=== PATIENT | female | born 1980 | race Caucasian/White ===

== ENCOUNTER 2020-10-18 09:30 | Emergency (ER) | payer OTHER, SELFPAY ==
--- NOTE | ~2020-10-18 | CT_ITS ---
EXAMINATION: CT ABDOMEN AND PELVIS WITHOUT CONTRAST CLINICAL INFORMATION: Abdominal pain. COMPARISON: None TECHNIQUE: Multidetector volumetric imaging was performed from the superior aspect of the liver through the pubic symphysis. Sagittal and coronal reformatted images were obtained on the technologist's workstation. No oral or intravenous contrast. This CT examination was performed using dose optimization techniques as appropriate, variously including the following: *Automated exposure control *Adjustment of mA and/or kV according to patient size (this includes techniques or standardized protocols for targeted exams where dose is matched to indication/reason for exam; i.e. extremities or head) *Use of iterative reconstruction technique DLP: 508 mGy-cm FINDINGS: LUNG BASES: The visualized lung bases are unremarkable. LIVER, GALLBLADDER, AND BILIARY TREE: The liver is normal in size, shape, and attenuation. No focal hepatic lesion or biliary ductal dilatation is present. Prior cholecystectomy. Common duct unremarkable. PANCREAS: Unremarkable. SPLEEN: Unremarkable. ADRENAL GLANDS: Unremarkable. KIDNEYS AND URETERS: The kidneys are normal in size, shape, and attenuation. No hydronephrosis, hydroureter, or calculi seen. No perinephric stranding. BLADDER: Unremarkable. GASTROINTESTINAL TRACT: There is no bowel obstruction or inflammatory changes in the bowel or mesentery. There is no pneumatosis or free air. No ascites or fluid collection. Some linear high attenuation medial to the cecum may represent barium in a small unremarkable appendix or perhaps benign mesenteric calcification. There are no inflammatory changes around the cecum or terminal ileum. ABDOMINAL WALL: No significant hernia is appreciated. LYMPH NODES: No lymphadenopathy. VASCULAR: Unremarkable. PELVIC VISCERA: No adnexal mass or pelvic ascites. OSSEOUS STRUCTURES: Unremarkable. CT/CT abdomen pelvis wo con IMPRESSION: 1. No inflammatory changes in abdomen or pelvis. No pneumatosis or free air. 2. Prior cholecystectomy. No ductal dilatation. 3. No hydronephrosis or perinephric stranding.
[2020-10-18 09:43] VITALS: BP 136/94; PULSE 108; RESP 20; TEMP 36.3; O2SAT 99; BMI 23.3
--- NOTE | 2020-10-18 11:01 | ED_ITS ---
HPI - Abdominal Pain General Chief Complaint: Dyspnea Stated Complaint: abd pain Time Seen by Provider: 10/18/20 10:46 History of Present Illness HPI narrative: 40-year-old female with history of GERD disease (never had upper endoscopy) presented today with 4 days of upper abdominal/epigastric pain, pain described as intermittent severe burning sensation (10/10), pain is localized to the epigastric area with no radiation, pain is associated with nausea but no vomiting or blood in the stool, pain is worsened by any p.o. intake, nothing relieves the pain. Patient had similar pain in the past and was diagnosed with peptic ulcer disease. Related Data Previous Rx's Medication Instructions Recorded omeprazole magnesium [Prilosec OTC] 20 mg PO BID #30 tab 10/18/20 Allergies Allergy/AdvReac Type Severity Reaction Status Date / Time amoxicillin [AMOXICILLIN] Allergy Unknown SHORTNESS Verified 10/18/20 09:46 OF BREATH levofloxacin [From [facility]] Allergy Unknown UNKNOWN Verified 10/18/20 09:46 Review of Systems Review of Systems All other systems are reviewed and are negative Constitutional: Reports as per HPI and Reports no additional constitutional complaints Eyes: Reports as per HPI and Reports no additional eye complaints Reports system reviewed and no additional complaints, except as documented Cardiovascular: Reports as per HPI and Reports no additional cardiovascular complaints Respiratory: Reports as per HPI and Reports no additional respiratory complaints Gastrointestinal: Reports as per HPI and Reports no additional gastrointestinal complaints Genitourinary: Reports no additional female genitourinary complaints Musculoskeletal: Reports no additional musculoskeletal complaints Skin/Breast: Reports system reviewed and no additional complaints, except as docu Psychiatric: Reports no additional psychiatric complaints Endocrine: Reports no additional endocrine complaints Hematologic/Lymphatic: Reports no additional hematologic/lymphatic complaints Allergic/Immunologic: Reports no additional allergic/immunologic complaints Reports system reviewed and no additional complaints, except as documented and Reports Abnormal speech present Physical Exam Vital Signs: Vital Signs: Last Vital Signs Temp 98.1 F 10/18/20 13:52 Pulse 86 10/18/20 13:52 Resp 20 10/18/20 13:52 BP 112/67 10/18/20 13:52 Pulse Ox 95 10/18/20 13:52 Body Mass Index 23.3 Vital signs have been reviewed as appeared to be correct. Blood pressure in the high range, Heart rate tachycardia. Respiration rate normal. Temperature normal. Oxygen saturation normal. Appearance: Alert. Oriented X3. No acute distress. Head: Normal external exam. Normocephalic. Atraumatic. No Castaneda signs noted. No raccoon eyes noted Eyes: PERRLA. EOMI. Conjunctiva and sclera normal. Eyelids normal. ENT: TM's Normal. Pharynx normal. Uvula midline. Moist mucous membranes. No trismus noted. No drooling noted. No muffled voice noted. Neck: Normal inspection. Neck supple. FROM. No adenopathy. Thyroid Normal. No meningeal signs. No neck mass noted. CVS: Normal heart rate and rhythm. Heart sound normal. No murmurs noted. Pulses normal throughout. Respiratory: No respiratory distress. Painless inspiration. Breath sounds normal. No wheezes/rales/rhonchi noted. Chest nontender. No accessory muscle usage noted or decreased air movement noted. Abdomen: Soft, epigastric tenderness, no rebound tenderness, no guarding. Bowel sounds normal in all 4 quadrants. No distention noted. No organomegaly noted. No visible injury noted. Back: No CVA tenderness. Full range of motion noted. Skin: Skin warm and dry. Normal skin color. Normal skin turgor. No rashes/lesions/lacerations noted. Extremities: No lower extremity edema. Extremities exhibit normal range of motion. Extremities nontender. Neuro: Oriented X 3. No motor deficit. No sensory deficit. Reflexes normal. MDM - Abdominal Pain MDM Narrative Medical decision making narrative: Assessment and plan. 40-year-old female came in with upper abdominal pain known history of gastritis/GERD. Patient had unremarkable labs/UA/CT of the abdomen pelvis. Will discharge the patient to follow-up with PCP/GI and start on Prilosec. Lab Data Attestation: I reviewed the patient's lab results. Result diagrams: 10/18/20 11:17 10/18/20 11:17 Labs: Lab Results 10/18/20 10/18/20 10/18/20 Range/Units 11:17 11:17 11:17 WBC 7.2 (4.8-10.8) X10*3/uL RBC 4.85 (4.20-5.50) X10*6/uL Hgb 13.9 (12.0-16.0) g/dl Hct 42.3 (37-47) % MCV 87.2 (80-98) fL MCH 28.7 (27.0-33.0) pg MCHC 32.9 (31.0-35.0) g/dl RDW 14.2 (11.0-16.0) % Plt Count 386 (160-400) X10*3/uL MPV 9.8 (9.4-12.3) fL Immature Gran % (Auto) 0.3 (0.0-0.4) % Neut % (Auto) 63.1 (45-73) % Lymph % (Auto) 27.1 (20-40) % Taylor % (Auto) 7.3 (2-11) % Eos % (Auto) 1.5 (0-4) % Baso % (Auto) 0.7 (0-2) % Lymph # (Auto) 1.9 (1.2-4.9) X10*3/uL Taylor # (Auto) 0.5 (0.1-1.2) X10*3/uL Eos # (Auto) 0.1 (0.0-0.4) X10*3/uL Baso # (Auto) 0.1 (0.0-0.2) X10*3/uL Abs Immat Gran (auto) 0.02 (0.00-0.03) X10*3/uL Absolute Neuts (auto) 4.5 (2.0-8.3) X10*3/uL Absolute Nucleated RBC 0.000 (0.0-0.012) X10*3/uL Nucleated RBC % (auto) 0.0 (0.0-0.2) /100WBC Sodium 138 (135-145) mmol/L Potassium 4.5 (3.3-5.1) mmol/L Chloride 103 (96-108) mmol/L Carbon Dioxide 25 (22-29) mmol/L Anion Gap 15 (12-20) BUN 7 L (9-16) mg/dL Creatinine 0.76 (0.5-1.4) mg/dL Estim Creat Clear Calc 77.0 Estimated GFR > 60 Random Glucose 86 (60-115) mg/dL Calcium 9.4 (8.4-10.2) mg/dL Total Bilirubin 0.5 (0.0-1.0) mg/dL Direct Bilirubin 0.2 (0.0-0.5) mg/dL AST 15 (5-31) U/L ALT 15 (0-31) U/L Alkaline Phosphatase 72 (39-117) U/L Total Protein 7.3 (6.5-8.0) g/dL Albumin 4.5 (3.5-5.0) g/dL Lipase 13 (8-78) U/L Urine Color Urine Appearance Urine pH (5.0-8.0) Ur Specific [place] (1.005-1.025) Urine Protein (NEG-TRACE) MG/DL Urine Glucose (UA) (NEG) MG/DL Urine Ketones (NEG) MG/DL Urine Blood (NEG) Urine Nitrite (NEG) Ur Leukocyte Esterase (NEG) Urine Test (NEGATIVE) COVID-19 ([facility]IE) Negative (Negative) COVID-19 Clin Com See Note 10/18/20 10/18/20 Range/Units 13:39 13:39 WBC (4.8-10.8) X10*3/uL RBC (4.20-5.50) X10*6/uL Hgb (12.0-16.0) g/dl Hct (37-47) % MCV (80-98) fL MCH (27.0-33.0) pg MCHC (31.0-35.0) g/dl RDW (11.0-16.0) % Plt Count (160-400) X10*3/uL MPV (9.4-12.3) fL Immature Gran % (Auto) (0.0-0.4) % Neut % (Auto) (45-73) % Lymph % (Auto) (20-40) % Taylor % (Auto) (2-11) % Eos % (Auto) (0-4) % Baso % (Auto) (0-2) % Lymph # (Auto) (1.2-4.9) X10*3/uL Taylor # (Auto) (0.1-1.2) X10*3/uL Eos # (Auto) (0.0-0.4) X10*3/uL Baso # (Auto) (0.0-0.2) X10*3/uL Abs Immat Gran (auto) (0.00-0.03) X10*3/uL Absolute Neuts (auto) (2.0-8.3) X10*3/uL Absolute Nucleated RBC (0.0-0.012) X10*3/uL Nucleated RBC % (auto) (0.0-0.2) /100WBC Sodium (135-145) mmol/L Potassium (3.3-5.1) mmol/L Chloride (96-108) mmol/L Carbon Dioxide (22-29) mmol/L Anion Gap (12-20) BUN (9-16) mg/dL Creatinine (0.5-1.4) mg/dL Estim Creat Clear Calc Estimated GFR Random Glucose (60-115) mg/dL Calcium (8.4-10.2) mg/dL Total Bilirubin (0.0-1.0) mg/dL Direct Bilirubin (0.0-0.5) mg/dL AST (5-31) U/L ALT (0-31) U/L Alkaline Phosphatase (39-117) U/L Total Protein (6.5-8.0) g/dL Albumin (3.5-5.0) g/dL Lipase (8-78) U/L Urine Color STRAW Urine Appearance CLEAR Urine pH 5.0 (5.0-8.0) Ur Specific [place] 1.015 (1.005-1.025) Urine Protein NEG (NEG-TRACE) MG/DL Urine Glucose (UA) NEG (NEG) MG/DL Urine Ketones 15 (NEG) MG/DL Urine Blood TRACE (NEG) Urine Nitrite NEG (NEG) Ur Leukocyte Esterase NEG (NEG) Urine Test NEGATIVE (NEGATIVE) COVID-19 ([facility]APHNIE) (Negative) COVID-19 Clin Com Discharge Plan Discharge Clinical Impression: Abdominal pain Qualifiers: Abdominal location: epigastric Qualified Code(s): R10.13 - Epigastric pain Gastritis Qualifiers: Gastritis type: unspecified gastritis Chronicity: acute Gastritis bleeding: without bleeding Qualified Code(s): K29.00 - Acute gastritis without bleeding Patient Disposition: Home, Self-Care Instructions: Gastritis (ED) Prescriptions: New omeprazole magnesium [Prilosec OTC] 20 mg tablet,delayed release (DR/EC) 20 mg PO BID Qty: 30 RF: 0 Referrals: Gus Kearns, [facility] [Primary Care Provider] - 2 days Russell Garcia MD [Physician] - 2 days [facility] Past Medical History Medical History Cholecystectomy planned GERD (gastroesophageal reflux disease) Impingement syndrome of left shoulder Mild depression Subacromial bursitis Surgical History History of section Family History Family History Father Medical history non-contributory Mother Graves disease Son No problems noted. Daughter No problems noted. Sister No problems noted. Sister No problems noted. Sister No problems noted. Sister No problems noted. Sister No problems noted. Social History Social History Alcohol intake: current Alcohol intake frequency: holidays/special occasions only Smoking Status: Current every day smoker Use of substances other than those prescribed or required for medical reasons: Yes Substance Use Type: Marijuana Advance Directives: No Advance Directives Information Provided: No
[2020-10-18 11:21] VITALS: BP 112/67; PULSE 86; RESP 20; TEMP 36.7; O2SAT 95
--- NOTE | 2020-10-18 11:23 | PC.NURSE ---
iv inserted, labs drawn, covid swab obtained, pt aware she needs to provide urine
[2020-10-18 11:24] LABS: MANUAL DIFF FLAG NO
[2020-10-18 11:32] LABS: Basophils Absolute Auto 0.1 X10*3/uL (0.0-0.2); Basophils Percent Auto 0.7 % (0-2); Eosinophils Absolute Auto 0.1 X10*3/uL (0.0-0.4); Eosinophils Percent Auto 1.5 % (0-4); Hematocrit 42.3 % (37-47); Hemoglobin 13.9 g/dl (12.0-16.0); Imm Gran Abs Auto 0.02 X10*3/uL (0.00-0.03); Imm Gran Pct Auto 0.3 % (0.0-0.4); Lymphocytes Absolute Auto 1.9 X10*3/uL (1.2-4.9); Lymphocytes Percent Auto 27.1 % (20-40); Mean Corpuscular HGB Conc 32.9 g/dl (31.0-35.0); Mean Corpuscular Hemoglobin 28.7 pg (27.0-33.0); Mean Corpuscular Volume 87.2 fL (80-98); Mean Platelet Volume 9.8 fL (9.4-12.3); Monocytes Absolute Auto 0.5 X10*3/uL (0.1-1.2); Monocytes Percent Auto 7.3 % (2-11); Neutrophils Absolute Auto 4.5 X10*3/uL (2.0-8.3); Neutrophils Percent Auto 63.1 % (45-73); Platelet Count 386 X10*3/uL (160-400); Red Blood Count 4.85 X10*6/uL (4.20-5.50); Red Cell Distribution Width 14.2 % (11.0-16.0); White Blood Count 7.2 X10*3/uL (4.8-10.8)
[2020-10-18 11:45] LABS: COVID-19 Test Negative (Negative)
[2020-10-18] MEDS: 0.9 % Sodium Chloride 1,000 ML 999 ML IVCONT (11:47)
--- NOTE | 2020-10-18 11:47 | PC.NURSE ---
pt return from radiology
[2020-10-18] MEDS: Famotidine/PF 20 MG/2 ML VIAL IVPUSH (11:48)
[2020-10-18] MEDS: Magnesium Hydrox/Alum Hydrox 30 ML ORAL.SUSP PO (11:48)
--- NOTE | 2020-10-18 11:49 | PC.NURSE ---
patient medicated per order
[2020-10-18 11:56] LABS: Alanine Aminotransferase 15 U/L (0-31); Albumin Level 4.5 g/dL (3.5-5.0); Alkaline Phosphatase 72 U/L (39-117); Anion Gap 15 (12-20); Aspartate Amino Transferase 15 U/L (5-31); Bilirubin Direct 0.2 mg/dL (0.0-0.5); Bilirubin Total 0.5 mg/dL (0.0-1.0); Blood Urea Nitrogen 7 mg/dL (9-16); Calcium 9.4 mg/dL (8.4-10.2); Carbon Dioxide 25 mmol/L (22-29); Chloride 103 mmol/L (96-108); Estimated Glomerular Filt Rate > 60; Glucose Random 86 mg/dL (60-115); Lipase 13 U/L (8-78); Potassium 4.5 mmol/L (3.3-5.1); Sodium 138 mmol/L (135-145); Total Protein 7.3 g/dL (6.5-8.0)
[2020-10-18 13:50] LABS: Glucose Urine UA NEG (NEG); Leukocyte Esterase Urine NEG (NEG); Nitrite Urine NEG (NEG); Specific Gravity - Urine 1.015 (1.005-1.025); Urine Blood TRACE (NEG); Urine Ketones 15 MG/DL (NEG); Urine Protein NEG (NEG-TRACE)
[2020-10-18 13:52] VITALS: BP 112/67; PULSE 86; RESP 20; TEMP 36.7; O2SAT 95
[2020-10-18 13:52] LABS: Appearance Urine CLEAR; Color Urine STRAW; UPreg QC Valid YES; Urine Pregnancy NEGATIVE (NEGATIVE)
--- NOTE | 2020-10-18 13:53 | PC.NURSE ---
patient a&ox3, vss, pt awaiting results of urine, patient currently pacing in room-states that she is a [id number] and has stripped the bed as well, pt is aware we are awaiting urine results and will continue to monitor.
[2020-10-18 13:58] LABS: Bacteria Urine 2+ /LPF; RBC Urine 0-2 /HPF (0); Squamous Epithelial Cell Urine 2+ /LPF; WBC Urine 0-2 /HPF (0-4)
== END 2020-10-18 14:32 | disposition home or self-care (01) ==
PROVIDERS: Emergency Provider Emergency Medicine; PCP Nurse Practitioner Family
DX: K29.00 Acute gastritis without bleeding (principal); Z20.822 Contact with and (suspected) exposure to COVID-19; K21.9 Gastro-esophageal reflux disease without esophagitis; F17.200 Nicotine dependence, unspecified, uncomplicated; F12.90 Cannabis use, unspecified, uncomplicated
CPT/HCPCS: 36415; 74176; 80048; 80076; 81001; 81025; 83690; 85025; 87635; 96361; 96374; 99284; 99285

== ENCOUNTER 2021-03-16 07:50 | Outpatient (REF) | payer OTHER, SELFPAY ==
--- NOTE | ~2021-03-16 | XR_ITS ---
EXAMINATION: BILATERAL SHOULDER: CLINICAL INFORMATION: Bilateral shoulder pain. COMPARISON: None TECHNIQUE: 3 views of each shoulder. FINDINGS: Left shoulder: There is mild reduction in the glenohumeral joint space. AC joint space is maintained normal. No visible fracture or dislocation seen. The soft tissues are normal. Right shoulder: There is mild loss of right lateral joint space without periarticular spurring. No bony erosive changes. No loose body seen. XR/XR shoulder LT min 2V IMPRESSION: Mild degenerative changes glenohumeral joint space. No visible acute fracture or dislocation.
--- NOTE | ~2021-03-16 | XR_ITS ---
EXAMINATION: BILATERAL SHOULDER: CLINICAL INFORMATION: Bilateral shoulder pain. COMPARISON: None TECHNIQUE: 3 views of each shoulder. FINDINGS: Left shoulder: There is mild reduction in the glenohumeral joint space. AC joint space is maintained normal. No visible fracture or dislocation seen. The soft tissues are normal. Right shoulder: There is mild loss of right lateral joint space without periarticular spurring. No bony erosive changes. No loose body seen. XR/XR shoulder RT min 2V IMPRESSION: Mild degenerative changes glenohumeral joint space. No visible acute fracture or dislocation.
== END 2021-03-16 07:51 | disposition home or self-care (01) ==
LOC: HO.HOSX 07:50
PROVIDERS: Visit Provider Orthopaedic Surgery
DX: M75.41 Impingement syndrome of right shoulder (principal); M75.42 Impingement syndrome of left shoulder
CPT/HCPCS: 73030; 99202

== ENCOUNTER 2021-03-30 12:04 | Outpatient (REF) | payer OTHER, SELFPAY ==
[2021-03-30 14:55] LABS: TSH reflex Free T4 1.04 uIU/mL (0.32-4.0)
[2021-03-31 09:12] LABS: Triiodothyronine T3 Free 2.9 pg/mL (2.3-4.2)
== END 2021-03-30 12:05 | disposition home or self-care (01) ==
LOC: HO.HMGCLDS 12:04
PROVIDERS: PCP Nurse Practitioner Family; Visit Provider Nurse Practitioner Family
DX: E05.00 Thyrotoxicosis with diffuse goiter without thyrotoxic crisis or storm (principal)
CPT/HCPCS: 36415; 84443; 84481

== ENCOUNTER 2021-12-01 10:53 | Outpatient (REF) | payer OTHER, SELFPAY ==
[2021-12-01 14:16] LABS: MANUAL DIFF FLAG NO
[2021-12-01 14:24] LABS: Basophils Percent Auto 0.4 % (0-2); Eosinophils Absolute Auto 0.1 X10*3/uL (0.0-0.4); Eosinophils Percent Auto 1.1 % (0-4); Hematocrit 43.8 % (37.0-47.0); Hemoglobin 14.3 g/dl (12.0-16.0); Imm Gran Abs Auto 0.02 X10*3/uL (0.00-0.03); Imm Gran Pct Auto 0.2 % (0.0-0.4); Lymphocytes Absolute Auto 1.8 X10*3/uL (1.2-4.9); Lymphocytes Percent Auto 19.5 % (20-40); Mean Corpuscular HGB Conc 32.6 g/dl (31.0-35.0); Mean Corpuscular Hemoglobin 28.9 pg (27.0-33.0); Mean Corpuscular Volume 88.7 fL (80.0-98.0); Mean Platelet Volume 10.5 fL (9.4-12.3); Monocytes Absolute Auto 0.6 X10*3/uL (0.1-1.2); Monocytes Percent Auto 6.7 % (2-11); Neutrophils Absolute Auto 6.5 x10*3/uL (2.0-8.3); Neutrophils Percent Auto 72.1 % (45-73); Platelet Count 348 X10*3/uL (160-400); Red Blood Count 4.94 X10*6/uL (4.20-5.50)
[2021-12-01 14:38] LABS: Alanine Aminotransferase 15 U/L (0-31); Albumin Level 4.2 g/dL (3.5-5.0); Alkaline Phosphatase 60 U/L (39-117); Anion Gap 9 (12-20); Aspartate Amino Transferase 12 U/L (5-31); Bilirubin Total 0.3 mg/dL (0.0-1.0); Blood Urea Nitrogen 9 mg/dL (9-16); Calcium 9.5 mg/dL (8.4-10.2); Carbon Dioxide 30 mmol/L (22-29); Chloride 105 mmol/L (96-108); Estimated Glomerular Filt Rate > 60; Glucose Fasting 78 mg/dL (60-99); Sodium 140 mmol/L (135-145); Total Protein 6.8 g/dL (6.5-8.0)
[2021-12-01 14:51] LABS: TSH reflex Free T4 0.76 uIU/mL (0.32-4.0)
[2021-12-01 14:55] LABS: Appearance Urine HAZY; Color Urine YELLOW; Glucose Urine UA NEG (NEG); Leukocyte Esterase Urine NEG (NEG); Nitrite Urine POS (NEG); Specific Gravity - Urine 1.025 (1.005-1.025); Urine Blood NEG (NEG); Urine Ketones NEG (NEG); Urine Protein NEG (NEG-TRACE)
[2021-12-01 15:17] LABS: Bacteria Urine 4+ /LPF; Squamous Epithelial Cell Urine 4+ /LPF
[2021-12-01 15:19] LABS: RBC Urine 0 /HPF (0); WBC Urine 0-2 /HPF (0-4)
== END 2021-12-01 10:54 | disposition home or self-care (01) ==
LOC: HO.WFDLDS 10:53
PROVIDERS: Visit Provider Family Medicine
DX: Z00.00 Encounter for general adult medical examination without abnormal findings (principal)
CPT/HCPCS: 36415; 80053; 81001; 84443; 85025